=== PATIENT | male | born 1995 | race African-American/Black ===

== ENCOUNTER → 2017-12-03 | Outpatient (CLI) | payer BC, OTHER ==
--- NOTE | 2017-12-03 14:24 | Diagnostic Imaging Report ---
EXAMINATION: Magnetic resonance imaging of the right ankle without contrast. DATE: December 03, 2017. COMPARISON: None. HISTORY: 22-year-old male, injury of the right ankle during track and field. Medial ankle pain. Evaluation for osteochondral lesion of the talar dome. TECHNIQUE: Magnetic Resonance Imaging sequences were performed of the ankle without contrast. FINDINGS: TENDONS AND LIGAMENTS: The Achilles tendon is unremarkable. The posterior flexor tendons - tibialis posterior, flexor digitorum longus, flexor hallucis longus - are intact. The peroneal tendons - peroneus longus and peroneus brevis - are intact. There is tenosynovitis of extensor digitorum longus. The anterior extensor tendons are otherwise intact. The anterior and posterior syndesmotic ligaments are intact. The anterior talofibular, posterior talofibular, calcaneofibular and deltoid ligaments are intact. There is no discretely identified tear of the ligaments within the sinus tarsi. There is nonspecific low-level edema in the sinus tarsi. There is preservation of normal sinus tarsi fat signal. The plantar fascia is intact. JOINTS: The ankle mortise is intact. The subtalar and visualized joints of the mid-foot are intact. BONE: The bones all have normal configuration. The bone marrow signal is within normal limits. Specifically, negative for fracture, osteomyelitis, osteonecrosis, or marrow replacing process. The talar dome is intact. BURSAE AND SOFT TISSUES: The bursae and soft tissues surrounding the ankle are unremarkable. IMPRESSION: 1. No osteochondral lesion of the talar dome. 2. Intact syndesmotic ligaments, low lateral ankle ligament complex, and deltoid ligament complex. 3. Low-level edema within the sinus tarsi with preservation of normal sinus tarsi fat signal. There is no discretely identified tear of sinus tarsi ligament. This is entirely nonspecific, although potentially could reflect sequela of low-grade subtalar sprain injury. 4. Tenosynovitis of the extensor digitorum longus. Otherwise, intact tendons. 5. No acute fracture or bone contusion. Dictated by: Dictated on workstation # [id number]
== END ==
LOC: RAD 11:05
PROVIDERS: ATTEND Nurse Practitioner
DX: M65.871 Other synovitis and tenosynovitis, right ankle and foot (principal); Y93.57 Activity, non-running track and field events
CPT/HCPCS: 73721

== ENCOUNTER 2019-01-12 18:45 | Emergency (ER) | payer BC ==
[~2019-01-12] VITALS: Ht 185 cm; Wt 89.0 kg
--- NOTE | 2019-01-12 18:59 | ED Lower Extremity ---
General Stated Complaint: R LEG INJ Source: patient Exam Limitations: no limitations History of Present Illness Date Seen by Provider: Jan 12, 2019 Time Seen by Provider: 18:58 Initial Comments Patient plays football for [employer], has right lateral lower leg pain after a direct blow to this area yesterday during football game. Onset: yesterday Severity: moderate Pain/Injury Location: right leg Method of Injury: sports injury Modifying Factors: Worse With Movement Allergies and Home Medications Allergies Coded Allergies: No Known Drug Allergies (Unverified , 01/12/19) Home Medications Hydrocodone Bit/Acetaminophen 1 Tab Tab, 1 EACH PO Q4-6HR PRN for PAIN-MODERATE Prescribed by: GIBRAN FAYE on 01/12/19 192 Patient Home Medication List Home Medication List Reviewed: Yes Review of Systems Constitutional: see HPI EENTM: see HPI Respiratory: no symptoms reported Cardiovascular: no symptoms reported Genitourinary: no symptoms reported Musculoskeletal: see HPI Skin: no symptoms reported Psychiatric/Neurological: No Symptoms Reported Past Fkzeien-Wsrxyp-Oepobf Hx Patient Social History Recent Foreign Travel: No Contact w/Someone Who Travel: No Physical Exam Vital Signs Vital Signs - First Documented 01/12/19 18:58 Temp 36.7 Pulse 69 Resp 18 B/P (MAP) 122/58 (79) Pulse Ox 96 O2 Delivery Room Air Capillary Refill : Height, Weight, BMI Height: '" Weight: lbs. oz. kg; BMI Method: General Appearance: WD/WN, no apparent distress Respiratory: no respiratory distress, no accessory muscle use Hips: bilateral hip non-tender, bilateral hip normal inspection, bilateral hip normal range of motion Legs: right leg other (tenderness to palpation lateral aspect proximal fibular region right leg. Strong dorsalis pedis pulse, normal sensation distally.) Knees: bilateral knee non-tender, bilateral knee normal inspection, bilateral knee normal range of motion Ankles: bilateral ankle non-tender, bilateral ankle normal inspection, bilateral ankle normal range of motion Feet: bilateral foot non-tender, bilateral foot normal inspection, bilateral foot normal range of motion Neurologic/Psychiatric: alert, normal mood/affect, oriented x 3 Skin: normal color, warm/dry Progress/Results/Core Measures Results/Orders My Orders Orders - GIBRAN FAYE DEAL ARCHITECT Tibia/Fibula, Right, 2 Views (01/12/19 18:57) Rx-Hydrocodone/Apap 5-325 Mg (Rx-Vicodin (01/12/19 19:30) Vital Signs/I&O 01/12/19 18:58 Temp 36.7 Pulse 69 Resp 18 B/P (MAP) 122/58 (79) Pulse Ox 96 O2 Delivery Room Air Diagnostic Imaging Diagonstic Imaging: Xray Comments NAME: ODALIS MAGALLON MED REC#: [id number] PT STATUS: REG ER : 1995 PHYSICIAN: GIBRAN FAYE DEAL ARCHITECT ADMIT DATE: 01/12/19/ER Draft Date of Exam:01/12/19 TIBIA/FIBULA, RIGHT, 2 VIEWS INDICATION: Right leg injury COMPARISON: None FINDINGS: 4 views of the right tibia and fibula demonstrate slightly displaced mid fibular fracture. The tibia, visualized ankle mortise and knee are intact. There is no radiopaque foreign body. IMPRESSION: Minimally displaced mid fibula fracture. Dictated on workstation # [id number] Dict: 01/12/191921 Trans: 01/12/191926 [facility] [id number] Interpreted by: NICOLASA ROBERT Electronically signed by: Departure Impression Primary Impression: Fibula fracture, closed, mid shaft, right Disposition: 01 HOME, SELF-CARE Condition: Stable Departure-Patient Inst. Decision time for Depature: 19:23 Referrals: ERNIE ARMSTRONG MD [employer] [facility] (PCP) Primary Care Physician ZUNILDA MAHARAJ MD Patient Instructions: Fibula Fracture (DC) Add. Discharge Instructions: 1. Stirrup splint when you're up moving around, crutches when walking, follow-up with either Dr. Armstrong who is the orthopedic surgeon on-call today or Dr. Maharaj who does orthopedics for [employer]. Or, another orthopedic surgeon if you refer. Pain medication as directed, ice pack to the area. No sports or practice until released. Scripts Hydrocodone Bit/Acetaminophen (Hydrocodone/Acetaminophen 5/325mg Tablet) 1 Tab Tab 1 EACH PO Q4-6HR PRN for PAIN-MODERATE MDD 10 for 3 Days, #14 TAB Prov: GIBRAN FAYE APRN 01/12/19 Work/School Note: Work Release Form Date Seen in the Emergency Department: Jan 12, 2019 Return to Work: Jan 13, 2019 Restrictions: No PE-Until Released, No Sports-Until Released Copy Copies To 1: ZUNILDA MAHARAJ MD, PETER J APRN Jan 12, 2019 18:59
[2019-01-12] MEDS ORDERED: ACHD5005 PO (19:25)
--- NOTE | 2019-01-12 19:28 | Diagnostic Imaging Report ---
INDICATION: Right leg injury COMPARISON: None FINDINGS: 4 views of the right tibia and fibula demonstrate slightly displaced mid fibular fracture. The tibia, visualized ankle mortise and knee are intact. There is no radiopaque foreign body. IMPRESSION: Minimally displaced mid fibula fracture. Dictated by: Dictated on workstation # [id number]
[2019-01-12] MEDS ORDERED: RX-HYDROCODONE/APAP 5/325 MG #4 TAB PK PO PRN (19:30)
[2019-01-12 19:41] VITALS: BP 122/58
== END 2019-01-12 19:41 | disposition home or self-care (01) ==
LOC: EDUNIT# 18:45 → ER 18:46
DX: S82.491A Other fracture of shaft of right fibula, initial encounter for closed fracture (principal); W21.01XA Struck by football, initial encounter; Y93.61 Activity, american tackle football
CPT/HCPCS: 73590

== ENCOUNTER → 2019-02-18 | Outpatient (CLI) | payer BC ==
[~2019-02-18] MED LIST: ACHD5005 PO
--- NOTE | 2019-02-18 14:42 | Diagnostic Imaging Report ---
PROCEDURE: MRI right joint lower extremity without contrast. TECHNIQUE: Multiplanar, multisequence non contrast-enhanced MRI of the right lower extremity was accomplished. INDICATION: Right fibular fracture in December 2018. Pain in the right ankle. COMPARISON: MRI from 12/03/2017. Radiographs from 01/12/2019. FINDINGS: No acute fracture is seen in the right ankle. There is mild bone marrow edema at the lateral aspect of the lateral malleolus. No significant joint effusion is seen. There appears to be a partial tear in the anterior inferior tibiofibular ligament, without significant surrounding edema. The posterior inferior tibiofibular ligament appears intact. The anterior talofibular ligament is intact. The posterior talofibular ligament is intact. The calcaneofibular ligament is intact. There is mildly increased signal of the deep fibers of the deltoid ligament with no tear seen. The spring ligament appears intact. The plantar fascia is upper normal in thickness. The sinus tarsi demonstrates normal fatty signal. The Achilles tendon is intact. The peroneal tendons are intact. The flexor tendons are intact. The extensor tendons appear intact. The musculature about the ankle demonstrates no focal atrophy or edema. No soft tissue fluid collections or masses are seen. The tarsal tunnel is unremarkable. IMPRESSION: 1. Irregularity at the anterior inferior tibiofibular ligament, concerning for partial tear, most likely chronic. 2. Nonspecific mild bone marrow edema at the lateral malleolus, may be due to contusion. No fracture is seen. Dictated by: Dictated on workstation # [id number]
== END ==
LOC: RAD 13:31
PROVIDERS: ATTEND Orthopaedic Surgery
DX: S93.491A Sprain of other ligament of right ankle, initial encounter (principal)
CPT/HCPCS: 73721